=== PATIENT | female | born 1955 | race Two or more races ===

== ENCOUNTER 2018-08-08 20:01 | Inpatient (IN) | payer OTHER, MEDICAID ==
[~2018-08-08] VITALS: Ht 160 cm; Wt 86.2 kg
[2018-08-08] MEDS ORDERED: PIPERACILLIN/TAZ 3.375G PREMIX 50 ML IV ONE (20:30)
[2018-08-08] MEDS ORDERED: SODIUM CHLORIDE 0.9% 1000ML BAG (SEPSIS BOLUS) IV ONE (20:30)
[2018-08-08] MEDS ORDERED: NOREPINEPHRINE 4 MG in DEXT 5% WATER 246 ML IV ONE (20:30)
[2018-08-08 20:58] LABS: BASOPHILS % 0.6 % (0.0-2.0); EOSINOPHILS % 0.4 % (0.0-5.0); HEMATOCRIT. 29.1 % (36.0-48.0); HEMOGLOBIN. 9.5 g/dL (12.0-16.0); LYMPHOCYTES % 7.2 % (20.0-50.0); MEAN CORPUSCULAR HEMOGLOBIN 29.4 pg (28.0-32.0); MEAN CORPUSCULAR VOLUME 90.3 fL (81.0-99.0); MEAN PLATELET VOLUME 7.8 fl (7.4-10.4); MONOCYTES % 4.3 % (2.0-8.0); NEUTROPHILS % 87.5 % (40.0-76.0); PLATELET 237 x1000/uL (130-400); RED BLOOD CELL COUNT 3.22 mill/uL (4.2-5.4)
[2018-08-08 21:04] LABS: CHLORIDE 98 mEq/L (98-107); INR 1.1; PROTHROMBIN TIME 11.1 sec (9.6-11.0)
[2018-08-08 21:20] LABS: BG BASE EXCESS -0.7 mmol/L (-2.0-2.0); BG CARBOXYHEMOGLOBIN 0.2 % (0.5-1.5); BG DEOXYHEMOGLOBIN 0.8 % (0.0-5.0); BG FRACTION INSPIRED OXYGEN 36; BG HCO3 ACT 17.9 mmol/L (22.0-26.0); BG METHEMOGLOBIN 0.2 % (0.0-1.5); BG OXYGEN SATURATION 99.2 % (92.0-98.5); BG OXYHEMOGLOBIN 98.8 % (94.0-97.0); BG PCO2 15.4 mmHg (35.0-45.0); BG PH 7.683 (7.350-7.450); BG PO2 146.5 mmHg (75.0-100.0); BG SAMPLE SITE RIGHT RADIAL; BG TOTAL HEMOGLOBIN 9.6 g/dL (12.0-18.0); BG VENT MODE NASAL CANNULA
[2018-08-08] MEDS ORDERED: MORPHINE SULFATE 4 MG/ML CPJ (NOT FOR IM USE) IV ONE (22:15)
[2018-08-08] MEDS ORDERED: ONDANSETRON HCL 4MG/2ML INJ IV ONE (22:15)
[2018-08-09] VITALS (14 sets, daily range): BP systolic 86–103; BP diastolic 44–74
[2018-08-09 02:11] LABS: CLARITY URINE TURBID (CLEAR); COLOR URINE DARK YELLOW (YELLOW); KETONES URINE TRACE (NEGATIVE); LEUKOCYTE ESTERASE URINE TRACE (NEGATIVE); NITRITE URINE NEGATIVE (NEGATIVE); OCCULT BLOOD URINE NEGATIVE (NEGATIVE); PROTEIN URINE 1+ (NEGATIVE); SPECIFIC GRAVITY URINE 1.036 (1.005-1.030)
[2018-08-09] MEDS ORDERED: GUAIFENESIN 200MG/10ML SUGAR FREE UDC PO PRN (05:45)
[2018-08-09] MEDS ORDERED: HYDROCODONE/ACETAMINOPHEN 10/325MG TABLET PO PRN (05:45)
[2018-08-09] MEDS ORDERED: MORPHINE SULFATE 4 MG/ML CPJ (NOT FOR IM USE) IV PRN (05:45)
[2018-08-09] MEDS ORDERED: ACETAMINOPHEN 325MG TABLET PO PRN (05:45)
[2018-08-09] MEDS ORDERED: NA PHOS,M-B/NA PHOS,DI-BA ENEMA 118ML PR PRN (05:45)
[2018-08-09] MEDS ORDERED: ONDANSETRON HCL 4MG/2ML INJ IV PRN (05:45)
[2018-08-09] MEDS ORDERED: IPRATROPIUM/ALBUTEROL 0.5-3(2.5)MG/3ML NEB INH PRN (05:45)
[2018-08-09] MEDS ORDERED: LORAZEPAM 2MG/ML CPJ IV PRN (05:45)
[2018-08-09] MEDS ORDERED: MAGNESIUM/ALUMINUM HYDROXIDE/SIMETHICONE 30ML UDC PO PRN (05:45)
[2018-08-09] MEDS ORDERED: CLONIDINE 0.1MG TABLET PO PRN (05:45)
[2018-08-09] MEDS ORDERED: DOCUSATE SODIUM 100MG CAPSULE PO PRN (05:45)
[2018-08-09 06:53] LABS: CHLORIDE 104 mEq/L (98-107)
[2018-08-09] MEDS: SODIUM CHLORIDE 0.45% 1,000 ML IV SCH (07:24)
[2018-08-09] MEDS ORDERED: ASPIRIN 81MG EC TABLET PO SCH (09:00)
[2018-08-09] MEDS ORDERED: ENOXAPARIN 40MG/0.4ML SYR SUBCUT SCH (09:00)
[2018-08-09] MEDS: PIPERACILLIN/TAZ 3.375G PREMIX 50 ML IV SCH ×3 (09:32→22:09)
[2018-08-09] MEDS ORDERED: ENOXAPARIN 30MG/0.3ML SYR SUBCUT NR (12:00)
[2018-08-09] MEDS: MIDODRINE HCL 5MG TABLET PO SCH ×3 (12:14→17:12)
[2018-08-09] MEDS ORDERED: ENOXAPARIN 80MG/0.8ML SYR SUBCUT SCH (21:00)
[2018-08-10] VITALS (13 sets, daily range): BP systolic 90–118; BP diastolic 52–67
[2018-08-10] MEDS: SODIUM CHLORIDE 0.45% 1,000 ML IV SCH (03:15)
[2018-08-10] MEDS: PIPERACILLIN/TAZ 3.375G PREMIX 50 ML IV SCH ×2 (05:14→14:26)
[2018-08-10 06:42] LABS: BASOPHILS % 0.4 % (0.0-2.0); EOSINOPHILS % 0.9 % (0.0-5.0); LYMPHOCYTES % 11.3 % (20.0-50.0); MEAN CORPUSCULAR HEMOGLOBIN 29.9 pg (28.0-32.0); MEAN CORPUSCULAR VOLUME 91.5 fL (81.0-99.0); MONOCYTES % 6.3 % (2.0-8.0); NEUTROPHILS % 81.1 % (40.0-76.0); PLATELET 202 x1000/uL (130-400); RED BLOOD CELL COUNT 1.71 mill/uL (4.2-5.4); RED CELL DISTRIBUTION WIDTH 22.3 % (11.6-14.6)
[2018-08-10 06:51] LABS: HEMATOCRIT. 15.7 % (36.0-48.0); HEMOGLOBIN. 5.1 g/dL (12.0-16.0)
[2018-08-10 07:00] LABS: CHLORIDE 99 mEq/L (98-107)
[2018-08-10 07:11] LABS: T4 FREE 1.42 ng/dL (0.76-1.46)
[2018-08-10 07:12] LABS: HDL CHOLESTEROL 24 mg/dL (40-59)
[2018-08-10 07:14] LABS: LDL CHOLESTEROL 45 mg/dL (5-100)
[2018-08-10] MEDS: MIDODRINE HCL 5MG TABLET PO SCH ×3 (08:22→17:13)
[2018-08-10] MEDS ORDERED: EPOETIN ALFA 4000UNITS/ML VIAL SUBCUT NR (17:00)
[2018-08-10] MEDS ORDERED: EPOETIN ALFA 4000UNITS/ML VIAL SUBCUT SCH (21:00)
[2018-08-12] MEDS ORDERED: EPOETIN ALFA 4000UNITS/ML VIAL SUBCUT SCH (21:00)
== END 2018-08-10 21:25 | disposition left against medical advice (07) | DRG 52 ==
LOC: ER 20:01 → 3WST 23:57 → EDBEDREQTM 23:59 → EDBEDREQ 23:59 → ENRESERV 08-09 01:03
PROVIDERS: ADMIT Internal Medicine; ATTEND Internal Medicine
DX: G93.41 Metabolic encephalopathy (principal); J96.00 Acute respiratory failure, unspecified whether with hypoxia or hypercapnia; E43 Unspecified severe protein-calorie malnutrition; E87.3 Alkalosis; C78.00 Secondary malignant neoplasm of unspecified lung; C16.9 Malignant neoplasm of stomach, unspecified; I95.9 Hypotension, unspecified; R18.8 Other ascites; E87.1 Hypo-osmolality and hyponatremia; I11.0 Hypertensive heart disease with heart failure; I50.40 Unspecified combined systolic (congestive) and diastolic (congestive) heart failure; Z53.21 Procedure and treatment not carried out due to patient leaving prior to being seen by health care provider; D64.9 Anemia, unspecified; R73.9 Hyperglycemia, unspecified; K43.9 Ventral hernia without obstruction or gangrene; K74.60 Unspecified cirrhosis of liver; N39.0 Urinary tract infection, site not specified; Z79.01 Long term (current) use of anticoagulants; Z86.718 Personal history of other venous thrombosis and embolism; Z90.710 Acquired absence of both cervix and uterus; Z90.49 Acquired absence of other specified parts of digestive tract; Z88.5 Allergy status to narcotic agent; Z88.4 Allergy status to anesthetic agent; Z68.33 Body mass index [BMI] 33.0-33.9, adult
CPT/HCPCS: 36415; 36600; 71045; 74176; 78580; 80048; 80061; 80076; 82375; 82805; 83605; 83735; 83880; 84145; 84439; 84443; 84484; 93005; 93306; 93971; 96365; 96366; 99291; J0885; J1650; J2270; J2405; J2543; J3490; J7030; J7060